=== PATIENT | female | born 1955 | race Caucasian/White ===

== ENCOUNTER 2021-03-01 11:46 | Day surgery (SDC) | payer MEDICARE, BC ==
[2021-03-01] MEDS ORDERED: Lactated Ringers 1,000 ML IV ONE (12:00)
[2021-03-01] MEDS ORDERED: Cyanocobalamin (Vitamin B12) 1,000 MCG/ML SDV IM ONE (12:30)
[2021-03-01 12:40] LABS: CORONAVIRUS COVID-19 NAA NEGATIVE (NEGATIVE)
[2021-03-01] MEDS ORDERED: MVI, Adult with Vitamin K 10 ML, Thiamine 200 MG, Zinc/Copper/Manganese/Selenium 1 ML i... IV ONE ×4 (13:00)
[2021-03-01] MEDS ORDERED: Midazolam 1 MG/ML 2 ML SDV ONE (13:15)
[2021-03-01] MEDS ORDERED: Propofol 200 MG/20 ML SDV ONE (13:15)
[2021-03-01] MEDS ORDERED: fentaNYL 100 MCG/2 ML SDV ONE (13:15)
[2021-03-01] MEDS ORDERED: Glycopyrrolate 0.2 MG/ML 2 ML SDV IVPUSH ONE (14:00)
[2021-03-01] MEDS ORDERED: Pantoprazole 40 MG Vial IVPUSH ONE (14:24)
[2021-03-01] MEDS ORDERED: Sodium Chloride 0.9% 1,000 ML IV SCH (15:15)
[2021-03-01] MEDS ORDERED: diphenhydrAMINE 50 MG/ML SDV IVPUSH PRN (16:00)
[2021-03-01] MEDS ORDERED: Hydrocortisone Sodium Succinate 100 MG/2 ML SDV IVPUSH PRN (16:00)
[2021-03-01] MEDS ORDERED: Famotidine 20 MG/2 ML SDV IVPUSH PRN (16:00)
[2021-03-01 16:14] VITALS: BP 156/94; PULSE 73
[2021-03-04 17:10] LABS: H. PYLORI BREATH TEST Negative (Negative)
--- NOTE | 2021-03-06 16:51 | OR ---
DATE OF PROCEDURE: 03/01/2021 SURGEON: Que Bhatia MD PREOPERATIVE DIAGNOSIS: Dysphagia and iron-deficiency anemia, status post Chau-en-Y gastric bypass. POSTOPERATIVE DIAGNOSES: 1. Dysphagia and iron-deficiency anemia, status post Chau-en-Y gastric bypass. 2. Very minimal pouch gastritis. 3. 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 OPERATIVE PROCEDURES: Upper GI endoscopy with: 1. Dilation of gastrojejunostomy with (06910). 2. Biopsy of gastric pouch for CLOtest (21712). ANESTHESIA: IV sedation. INDICATION FOR PROCEDURE: A 65-year-old female status post Chau-en-Y gastric bypass in 2014. She presents now with some dysphagia referable to the area of the gastric pouch. Plan is to proceed with an upper endoscopy with biopsies and dilation as indicated. Potential risks including bleeding and perforation were discussed, and the patient wishes to proceed. DETAILS OF PROCEDURE: The patient was taken to the operating room and placed in a left lateral decubitus position. IV sedation was administered, after which the upper GI endoscope was passed orally through the length of the esophagus through the gastric pouch and through the gastrojejunostomy, roughly 20 cm. Findings included some very minimal pouch gastritis, with the area being minimally reddened and nonedematous. There is no significant stricturing at the gastrojejunostomy. Otherwise, the findings were unremarkable. At this point, a dilator was placed across the gastrojejunostomy and inflated to 54-Lao. After holding this in position for 1 minute, the balloon catheter was deflated and withdrawn. There appeared to be minimal additional dilation accomplished as this was already fairly wide open. Biopsies were then obtained from the gastric pouch, sent for CLOtest for H pylori. Minimal bleeding from the biopsy sites was seen and the procedure was then concluded. The patient had a ferritin level drawn earlier today, which was only 10. Given this, she will be given some IV iron with a repeat dose to be scheduled in roughly 10 days. Additionally, we will start her on Vitron-C 65/125 one tablet daily. In the past, she has had problems with tolerance of the oral iron, but has not tried this formula thus far. She will be given Protonix 40 mg IV in the recovery room and instructed and given prescription for Protonix 40 mg b.i.d. x60 days and Levsin 0.125 mg sublingual q.i.d. p.r.n. #40 to be taken as needed for epigastric and lower chest discomfort. We will also obtain an H pylori breath test in the [facility]U. She will be following up with Krysta Zavala in roughly 1 month. Que Bhatia MD /[id number]
== END 2021-03-01 16:35 | disposition home or self-care (01) ==
LOC: JP.SDS 11:46
PROVIDERS: ATTEND Surgery
DX: K29.70 Gastritis, unspecified, without bleeding (principal); K22.2 Esophageal obstruction; D50.9 Iron deficiency anemia, unspecified; E78.5 Hyperlipidemia, unspecified; I10 Essential (primary) hypertension; E66.9 Obesity, unspecified; Z68.29 Body mass index [BMI] 29.0-29.9, adult; Z88.2 Allergy status to sulfonamides; Z98.84 Bariatric surgery status
CPT/HCPCS: 0241U; 43239; 43245; 80053; 82525; 82728; 82746; 83013; 83735; 84425; 84590; 84630; 85027; 86850; 86900; 86901; 87081; C9113; J2250; J2704; J3010; J3411; J3420; J3490; J7030; J7120; Q0138

== ENCOUNTER 2024-08-04 07:08 | Day surgery (SDC) | payer MEDICARE, BC ==
[2024-08-04] MEDS: Lactated Ringers 1,000 ML IV SCH (07:53)
[2024-08-04] MEDS: Cyanocobalamin (Vitamin B12) 1,000 MCG/ML SDV IM ONE (08:35)
[2024-08-04] MEDS: MVI, Adult with Vitamin K 10 ML, Thiamine 200 MG, Zinc/Copper/Manganese/Selenium 1 ML i... IV ONE (09:00)
[2024-08-04] MEDS ORDERED: Propofol 200 MG/20 ML SDV ONE (09:34)
[2024-08-04] MEDS ORDERED: fentaNYL 50 MCG/ML SDV ONE (09:34)
[2024-08-04 11:06] VITALS: BP 126/65; PULSE 52
== END 2024-08-04 11:21 | disposition home or self-care (01) ==
LOC: JP.SDS 07:08
PROVIDERS: ATTEND Surgery
DX: R13.10 Dysphagia, unspecified (principal); F32.A Depression, unspecified
CPT/HCPCS: 00731; 43239; 43245; 88305; C1726; J2704; J3010; J3411; J3420; J7120; J3490

== ENCOUNTER → 2025-08-30 | Day surgery (SDC) | payer MEDICARE, BC ==
[~2025-08-30] MED LIST: Propofol 200 MG/20 ML SDV ONE; fentaNYL 100 MCG/2 ML SDV ONE
[2025-08-30] MEDS: Lactated Ringers 1,000 ML IV SCH (08:18)
[2025-08-30 10:47] VITALS: BP 98/68; PULSE 38
== END ==
LOC: JP.SDS 07:33
PROVIDERS: ATTEND Surgery
DX: R13.10 Dysphagia, unspecified (principal); E78.00 Pure hypercholesterolemia, unspecified; E03.9 Hypothyroidism, unspecified; F41.9 Anxiety disorder, unspecified; F32.A Depression, unspecified; Z98.0 Intestinal bypass and anastomosis status; Z98.84 Bariatric surgery status; Z88.2 Allergy status to sulfonamides; Z79.890 Hormone replacement therapy; Z79.899 Other long term (current) drug therapy
CPT/HCPCS: 43235; J2704; J3010; J7120; 00731-QZ